=== PATIENT | female | born 1960 | race Two or more races ===

== ENCOUNTER → 2021-01-09 | Outpatient (CLI) | payer OTHER ==
--- NOTE | 2021-01-10 00:24 | RAD ---
Right Lower Extremity Venous Doppler: Reason for examination: Right lower extremity swelling. The right lower extremity venous system was evaluated from the common femoral and greater saphenous v eins distally to the calf veins with rachel scale imaging, color flow imaging and spectral analysis. There is normal blood flow without deep venous thrombosis. There is normal response of the venous sys tem to compression and augmentation. Note is made however of a Cormier's cyst measuring 4.1 x 2.8 x 1.4 cm in greatest dimensions. Impression: No deep venous thrombosis in the right lower extremity venous system. Cormier's cyst measuring 4.1 x 2.8 x 1.4 cm in greatest dimensions Electronically signed by: Lacey Vazquez MD (01/10/2021 12:22 AM) [email or web address]
== END ==
LOC: RAD 23:07
PROVIDERS: ATTEND Family Medicine
DX: M71.21 Synovial cyst of popliteal space [Baker], right knee (principal); M79.89 Other specified soft tissue disorders; M79.604 Pain in right leg; R29.898 Other symptoms and signs involving the musculoskeletal system; R60.0 Localized edema
CPT/HCPCS: 93971